=== PATIENT | female | born 1995 | race African-American/Black ===

== ENCOUNTER 2016-05-11 08:10 | Emergency (ER) | payer OTHER ==
[2016-05-11] MEDS: 0.9 % SODIUM CHLORIDE 1,000 ML IV ONE ×2 (09:00→10:17)
[2016-05-11] MEDS: ONDANSETRON HCL/PF 4 MG/ 2ML VIAL IVP ONE (09:02)
[2016-05-11 09:31] LABS: BASOPHILS % 0.2 (0.0-1.5); EOSINOPHILS % 1.3 % (0.0-6.8); LYMPHOCYTES # 0.6 # k/uL (0.6-4.0); MEAN CORPUSCULAR HEMOGLOBIN 30.5 pg (28.0-34.0); MONOCYTES # 0.2 # k/uL (0.0-0.9); MONOCYTES % 2.9 % (0.0-11.0); NEUTROPHILS # 6.6 # k/uL (1.4-7.7)
[2016-05-11 11:00] VITALS: BP 104/58
[2016-05-11 11:47] LABS: APPEARANCE,URINE CLEAR (CLEAR); COLOR,URINE YELLOW (YELLOW); OCCULT BLOOD,URINE 1+ (NEGATIVE); PH URINE 8.5 (5.0 - 8.0)
--- NOTE | 2016-05-11 15:12 | ED Physician Documentation ---
General Adult - HISTORIAN Historian: patient - HPI Stated Complaint: N/V with Chief Complaint: General Adult Onset: hours Timing: worse Further Comments: yes (21 year old female patient presents with c/o nausea and vomiting last night. Concerned she may have food poisoning. Has not been able to keep down po's since dinner last night, c/o epigastric discomfort. Reports diarrhea x 1 episode, denies fever, cough or SOB. Report good movement.) - ROS CONST: no problems EYES/ENT: none CVS/RESP: none GI/: vomiting, nausea, diarrhea MS/SKIN/LYMPH: none NEURO/PSYCH: denies: headache, fainting, dizziness, anxiety - PAST HX Past History: none Other History: none Allergies/Adverse Reactions: Allergies Allergy/AdvReac Type Severity Reaction Status Date / Time No Known Allergies Allergy Verified 05/01/16 16:13 Home Medications: Ambulatory Orders Medication Instructions Recorded Pnv95/Ferrous Fumarate/FA 1 tab PO DAILY 05/01/16 [ Caplet] Ondansetron HCl Rapdis [Zofran Odt] 4 mg PO Q6 PRN #15 tab 05/11/16 - SOCIAL HX Smoking History: non-smoker - FAMILY HX Family History: No - VITAL SIGNS Vital Signs: Vital Signs Temp Pulse Resp BP Pulse Ox 98 F 82 14 104/58 99 05/11/16 08:10 05/11/16 10:51 05/11/16 10:51 05/11/16 10:51 05/11/16 10:51 - REVIEWED ASSESSMENTS Nursing Assessment Reviewed: Yes Vitals Reviewed: Yes Progress - Progress Progress: G2, P1 21 weeks . patient states nausea has improved after zofran and fluids. Up to bathroom, voided. Reviewed discharge instructions, questions answered. ED Results Lab/Radiology - Lab Results Lab Results: Lab Results 05/11/16 05/11/16 09:20 09:15 WBC 7.60 K/ul K/ul (4.00-12.00) RBC 4.33 M/ul M/ul (3.90-5.20) Hgb 13.2 g/dL g/dL (12.0-16.0) Hct 38.5 % % (34.5-46.5) MCV 89.0 fl fl (80.0-100.0) MCH 30.5 pg pg (28.0-34.0) MCHC 34.3 g/dL g/dL (30.0-36.0) RDW 13.1 % % (11.3-14.3) Plt Count 167 K/mm3 K/mm3 (130-400) Neut % (Auto) 86.8 % H % (39.0-79.0) Lymph % (Auto) 7.9 % L % (16.0-50.0) [place] % (Auto) 2.9 % % (0.0-11.0) Eos % (Auto) 1.3 % % (0.0-6.8) Baso % (Auto) 0.2 (0.0-1.5) Neut # 6.6 # k/uL # k/uL (1.4-7.7) Lymph # 0.6 # k/uL # k/uL (0.6-4.0) [place] # 0.2 # k/uL # k/uL (0.0-0.9) Eos # 0.1 # k/uL # k/uL (0.0-0.6) Baso # 0.0 # k/uL # k/uL (0.0-0.5) Reactive Lymphs % 0.9 % % (0.0-5.0) Reactive Lymphs # 0.1 # k/uL # k/uL (0.0-0.8) Urine Color Yellow (YELLOW) Urine Appearance Clear (CLEAR) Urine pH 8.5 (5.0 - 8.0) Ur Specific [place] 1.020 (1.010-1.030) Urine Protein 1+ mg/dL H mg/dL (NEGATIVE) Urine Ketones 4+ mg/dL H mg/dL (NEGATIVE) Urine Occult Blood 1+ H (NEGATIVE) Urine Nitrite Negative (NEGATIVE) Urine Bilirubin 1+ H (NEGATIVE) Urine Urobilinogen 1.0 Eu Eu (0.2-1.0) Ur Leukocyte Esterase Negative (NEGATIVE) Urine Glucose Negative mg/dL mg/dL (NEGATIVE) - Orders Orders: ED Orders Category Date Time Status Place Saline Lock/IV NOW Care 05/11/16 08:15 Active CBC/PLATELET/DIFF Stat Lab 05/11/16 09:20 Completed UA MACRO DIP ONLY Routine Lab 05/11/16 09:15 Completed UA W/MICRO IF INDICATED Stat Lab 05/11/16 08:15 Ordered 0.9 % Sodium Chloride [Normal Saline] 1,000 ml Med 05/11/16 08:15 Discontinued IV NOW 0.9 % Sodium Chloride [Normal Saline] 1,000 ml Med 05/11/16 10:07 Discontinued IV NOW Ondansetron HCl/Pf [Zofran 4 mg/2 ml] Med 05/11/16 08:15 Discontinued 4 mg IVP NOW ONE General Adult Physical Exam - PHYSICAL EXAM GENERAL APPEARANCE: mild distress EENT: eye inspection normal, VERONICA CVS: reg rate & rhythm, heart sounds normal, equal pulses, no murmur, no gallop , PMI nml, no JVD, no friction rub, 24 ABDOMEN: soft, no organomegaly, normal bowel sounds, no abdominal bruit, no distension, tenderness (epigastric), other (protuberant, abdomen). 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 Diet: Clear liquids Sprite/7-up Juices apple, white grape Gatorade/Powerade Jello Popsicles When tolerating clear liquids, advance to bland diet - such as crackers , rice, bananas or toast Return to the emergency department or call your doctor, if you are having severe abdominal pain, fever >101.0, or if there is blood in the vomit or diarrhea, or you cannot keep down liquids or solid food Home Medications: Ambulatory Orders Pnv95/Ferrous Fumarate/FA [ Caplet] 1 tab PO DAILY 05/01/16 Ondansetron HCl Rapdis [Zofran Odt] 4 mg PO Q6 PRN #15 tab 03/22/17 Condition: Good Disposition: 01 HOME, SELF-CARE Decision to Admit: NO Decision Time: 10:40
== END 2016-05-11 10:51 | disposition home or self-care (01) ==
LOC: ED 08:10
DX: O21.0 Mild hyperemesis gravidarum (principal)
CPT/HCPCS: 81002; 85025; 96361; 96374; 99283; J2405; J7030; S1016

== ENCOUNTER 2016-07-01 15:50 | Emergency (ER) | payer OTHER ==
[2016-07-01] MEDS ORDERED: ONDANSETRON HCL 4 MG TAB.RAPDIS ONE (16:15)
[2016-07-01] MEDS: ONDANSETRON HCL 4 MG TAB.RAPDIS PO ONE (16:20)
[2016-07-01 16:22] LABS: APPEARANCE,URINE Clear (CLEAR); COLOR,URINE Yellow (YELLOW); OCCULT BLOOD,URINE Trace-intact (NEGATIVE)
[2016-07-01 16:31] LABS: AMORPHOUS SEDIMENT,UR FEW (NEGATIVE); STARCH,URINE PRESENT (NEGATIVE)
[2016-07-01 17:05] VITALS: BP 112/81
--- NOTE | 2016-07-01 17:52 | ED Physician Documentation ---
Abdominal Pain - HISTORIAN Historian: patient - HPI Stated Complaint: N/V Chief Complaint: Abdominal Pain Additonal Information: n/v, low abd. pain today Onset: hours (6) Duration: sudden-onset Timing: still present Context: denies: out of country travel, bad food, recent trauma Severity: moderate Quality: aching Front/Back of Body, Lg (Color): 1 - pain Associated Symptoms: nausea, vomiting Exacerbated by: nothing Relieved by: nothing Further Comments: no - ROS CONST: no problems GI/: none CVS/RESP: none EYES/ENT: none MS/SKIN/LYMPH: none NEURO/PSYCH: none - SOCIAL HX Smoking History: non-smoker Alcohol Use: none Drug Use: none - FAMILY HX Family History: no significant history - PAST HX Past History: other (27 weeek iup) Ischemic Bowel Risk Factors: none Other History: none Surgeries/Procedures: none Immunizations: referred to PCP Home Medications: Ambulatory Orders Medication Instructions Recorded Pnv95/Ferrous Fumarate/FA 1 tab PO DAILY 05/01/16 [ Caplet] Ondansetron HCl Rapdis [Zofran Odt] 4 mg PO Q6 PRN #15 tab 05/11/16 Allergies/Adverse Reactions: Allergies Allergy/AdvReac Type Severity Reaction Status Date / Time No Known Allergies Allergy Verified 07/01/16 16:21 - VITAL SIGNS Vital Signs: Vital Signs Temp Pulse Resp BP Pulse Ox 98.9 F 91 H 18 112/81 99 07/01/16 16:55 07/01/16 16:55 07/01/16 16:55 07/01/16 16:55 07/01/16 15:50 - REVIEWED ASSESSMENTS Nursing Assessment Reviewed: Yes Vitals Reviewed: Yes Progress - Results/Orders Results/Orders: ua ordered - Progress Progress: pt. given zofran odt 4 mg p.o. and keflex 500 mg 2 p.o. in er with improvement of symptoms Critical Care Note - Critical Care Note Total Time (mins): 0 ED Results Lab/Radiology - Lab Results Lab Results: Lab Results 07/01/16 16:20 Urine Color Yellow (YELLOW) Urine Appearance Clear (CLEAR) Urine pH 6.0 (5.0 - 8.0) Ur Specific [place] >=1.030 H (1.010-1.030) Urine Protein 2+ mg/dL H mg/dL (NEGATIVE) Urine Ketones Trace mg/dL mg/dL (NEGATIVE) Urine Occult Blood Trace-intact (NEGATIVE) Urine Nitrite Negative (NEGATIVE) Urine Bilirubin Negative (NEGATIVE) Urine Urobilinogen 1.0 Eu Eu (0.2-1.0) Ur Leukocyte Esterase Trace (NEGATIVE) Urine RBC 0-2 (0-2 HPF) Urine WBC 2-5 (0-5 HPF) Ur Squamous Epith Cells Few (NEG-FEW) Amorphous Sediment Few H (NEGATIVE) Urine Bacteria Few H (NEGATIVE) Urine Starch Present H (NEGATIVE) Urine Glucose Negative mg/dL mg/dL (NEGATIVE) - Radiology Radiology Impressions: none ordered - Orders Orders: ED Orders Category Date Time Status URINALYSIS Routine Lab 07/01/16 16:20 Completed Ondansetron HCl Rapdis [Zofran Odt] Med 07/01/16 16:15 Discontinued 4 mg .ROUTE .STK-MED ONE Ondansetron HCl Rapdis [Zofran Odt] Med 07/01/16 16:15 Discontinued 4 mg PO NOW ONE Abdominal Pain Physical Exam - Physical Exam General Appearance: no acute distress, alert EENT: eye inspection normal, ENT inspection normal, pharynx normal, no signs of dehydration, VERONICA, no nystagmus, TM's nml NECK: normal inspection, thyroid normal, supple RESPIRATORY: no resp distress, chest non-tender CVS: reg rate & rhythm, heart sounds normal, equal pulses, no murmur, no gallop , PMI nml, no JVD ABDOMEN: soft, no organomegaly, normal bowel sounds, no abdominal bruit, no distension, tenderness (suprapubic area) BACK: normal inspection, no CVA tenderness SKIN: warm/dry, normal color EXTREMITIES: non-tender, normal range of motion, no evidence of injury, no edema NEURO: oriented X3, CN's nml as tested, motor nml, sensation nml, mood/affect nml, cognition normal Vital Signs: Vital Signs Temp Pulse Resp BP Pulse Ox 98.9 F 91 H 18 112/81 99 07/01/16 16:55 07/01/16 16:55 07/01/16 16:55 07/01/16 16:55 07/01/16 15:50 Discharge Clincal Impression: Urinary tract infection Qualifiers: Urinary tract infection type: acute cystitis Hematuria presence: without hematuria Qualified Code(s): N30.00 - Acute cystitis without hematuria Referrals: Savannah Tong [Primary Care Provider] - 2 Days Home Medications: Ambulatory Orders Pnv95/Ferrous Fumarate/FA [ Caplet] 1 tab PO DAILY 05/01/16 Ondansetron HCl Rapdis [Zofran Odt] 4 mg PO Q6 PRN #15 tab 05/11/16 Comments: pt. discharged with scripts for keflex and zofran Condition: Stable Disposition: 01 HOME, SELF-CARE Decision to Admit: NO Decision Time: 16:50
== END 2016-07-01 16:50 | disposition home or self-care (01) ==
LOC: ED 15:50
DX: N30.00 Acute cystitis without hematuria (principal)
CPT/HCPCS: 81002; A9270; 99283

== ENCOUNTER 2016-08-06 09:17 | Emergency (ER) | payer OTHER ==
[2016-08-06 09:40] LABS: APPEARANCE,URINE CLOUDY (CLEAR); COLOR,URINE YELLOW (YELLOW); OCCULT BLOOD,URINE NEGATIVE (NEGATIVE); UROBILINOGEN URINE 0.2 Eu (0.2-1.0)
--- NOTE | 2016-08-06 10:13 | ED Physician Documentation ---
Female Urogenital Problems - HISTORIAN Historian: patient - HPI Stated Complaint: Urinary Symptoms Chief Complaint: Abdominal Pain Onset: hours (last noc) Severity: mild Further Comments: yes (Patient started to have some abd cramping pain inthe lwoer abd area. ? Contractions. Patient is 34 weeks in . [id number].Cramps are not regular. Has been having some clear vaginal discharge. Last seen byOB last week and everything was ok.) - Associated Symptoms Urinary Symptoms: urgency w/ urination. denies: blood in urine, frequent urination, discomfort w/ urination, burning w/ urination Discharge: vaginal discharge (clear white). denies: vaginal fluid leakage, odorous discharge - ROS CONST: none GI/: denies: nausea, vomiting - PAST HX Past History: none Other History: none Surgeries/Procedures: none Immunizations: referred to PCP Allergies/Adverse Reactions: Allergies Allergy/AdvReac Type Severity Reaction Status Date / Time No Known Allergies Allergy Verified 08/06/16 09:39 Home Medications: Ambulatory Orders Medication Instructions Recorded Pnv95/Ferrous Fumarate/FA 1 tab PO DAILY 05/01/16 [ Caplet] - SOCIAL HX Smoking History: less than 1 pack/day Alcohol Use: none Drug Use: none - FAMILY HX Family History: none - VITAL SIGNS Vital Signs: Vital Signs Temp Pulse Resp BP Pulse Ox 97.8 F 98 H 18 129/63 99 08/06/16 09:20 08/06/16 09:20 08/06/16 09:20 08/06/16 09:20 08/06/16 09:20 - REVIEWED ASSESSMENTS Nursing Assessment Reviewed: Yes Vitals Reviewed: Yes ED Results Lab/Radiology - Lab Results Lab Results: Lab Results 08/06/16 09:25 Urine Color Yellow (YELLOW) Urine Appearance Cloudy H (CLEAR) Urine pH 7.0 (5.0 - 8.0) Ur Specific [place] 1.020 (1.010-1.030) Urine Protein Negative mg/dL mg/dL (NEGATIVE) Urine Ketones Negative mg/dL mg/dL (NEGATIVE) Urine Occult Blood Negative (NEGATIVE) Urine Nitrite Negative (NEGATIVE) Urine Bilirubin Negative (NEGATIVE) Urine Urobilinogen 0.2 Eu Eu (0.2-1.0) Ur Leukocyte Esterase 1+ H (NEGATIVE) Urine Glucose Negative mg/dL mg/dL (NEGATIVE) - Orders Orders: ED Orders Category Date Time Status UA MACRO DIP ONLY Routine Lab 08/06/16 09:25 Completed URINE CULTURE Routine Lab 08/06/16 09:25 Received Female Urogenital Problems - EXAM General Appearance: no acute distress Neck: nml inspection Respiratory: no resp. distress, breath sounds nml, respiratory distress. No: wheezes, rales, rhonchi CVS: reg rate & rhythm, heart sounds normal, equal pulses Abdomen: soft, non-tender, no organomegaly, no distention, nml bowel sounds, gravid uterus (nont). No: tenderness Pelvic: No: vaginal discharge, active bleeding, cervical dilation, adnexal tenderness (R), adnexal tenderness (L) Back: non-tender. No: vertebral point-tendernes Skin: color nml, no rash Extremities: non-tender, no edema Neuro: mood/affect nml Discharge Clincal Impression: Abdominal cramping Referrals: Savannah Tong [Primary Care Provider] - 2 Days Additional Instructions: Drink a lot of fluids. If you continue to have problems to contact your OB doctor to see if they want to see you. Home Medications: Ambulatory Orders Pnv95/Ferrous Fumarate/FA [ Caplet] 1 tab PO DAILY 05/01/16 Condition: Stable Disposition: 01 HOME, SELF-CARE Decision to Admit: NO Date of Decison to Admit: 08/06/16 Decision Time: 10:12
[2016-08-06 10:23] VITALS: BP 118/78
== END 2016-08-06 10:20 | disposition home or self-care (01) ==
LOC: ED 09:17
DX: R10.9 Unspecified abdominal pain (principal)
CPT/HCPCS: 81002; 87086; 99283

== ENCOUNTER 2016-09-11 22:11 | Emergency (ER) | payer OTHER ==
--- NOTE | 2016-09-11 22:16 | ED Physician Documentation ---
General Adult - HISTORIAN Historian: patient - HPI Stated Complaint: @ 38 wks, ? contractions Chief Complaint: General Adult Onset: hours Severity: moderate Further Comments: yes (Pt is a 21 yo female at 38 and 1/7 weeks who says that she has been having contractions for a couple of days. Pt has had some clear fluid vaginally this am, she says. No blood, good movement. Pt reports no problems in previous .) - ROS CONST: no problems EYES/ENT: none CVS/RESP: none GI/: other (possible contractions in ) MS/SKIN/LYMPH: none - PAST HX Past History: none Allergies/Adverse Reactions: Allergies Allergy/AdvReac Type Severity Reaction Status Date / Time No Known Allergies Allergy Verified 09/11/16 23:03 Home Medications: Ambulatory Orders Medication Instructions Recorded Pnv95/Ferrous Fumarate/FA 1 tab PO DAILY 05/01/16 [ Caplet] Cephalexin [Keflex] 500 mg PO Q12H #10 capsule 09/11/16 - SOCIAL HX Smoking History: quit less than 1 year - FAMILY HX Family History: No - VITAL SIGNS Vital Signs: Vital Signs Temp Pulse Resp BP Pulse Ox 118/78 08/06/16 10:20 - REVIEWED ASSESSMENTS Nursing Assessment Reviewed: Yes Vitals Reviewed: Yes Progress - Progress Progress: 1 L NS IVF U/a - trace leuk, 1+ blood minimal fluid on pelvic exam. nitrizine - neg. No ferning on slide. contractions mild, timed > q 10 min FHT's - 140 Rx Keflex 500 mg po bid x 5 days, 1st dose in ER. Pt has f/u appointment with OB, Dr. Tong tomorrow 09/12/16. General Adult Physical Exam - PHYSICAL EXAM GENERAL APPEARANCE: mild distress EENT: pharynx normal NECK: normal inspection, supple RESPIRATORY: no resp distress, chest non-tender, breath sounds normal CVS: reg rate & rhythm, heart sounds normal ABDOMEN: normal bowel sounds, other (gravid; pelvic exam: cervix closed, not effaced. Nitrizine-neg; no ferning on slide.) BACK: normal inspection, no CVA tenderness SKIN: warm/dry, normal color EXTREMITIES: non-tender, normal range of motion NEURO: oriented X3, motor nml, sensation nml Discharge Clincal Impression: with concern for active labor, uti Prescriptions: Cephalexin [Keflex] 500 mg PO Q12H #10 capsule Referrals: Savannah Tong [Primary Care Provider] - 09/12/16 Home Medications: Ambulatory Orders Pnv95/Ferrous Fumarate/FA [ Caplet] 1 tab PO DAILY 05/01/16 Cephalexin [Keflex] 500 mg PO Q12H #10 capsule 09/11/16 Condition: Good Disposition: 01 HOME, SELF-CARE Decision to Admit: NO Decision Time: 00:20
[2016-09-11] MEDS: 0.9 % SODIUM CHLORIDE 1,000 ML IV ONE (22:30)
[2016-09-11 22:44] LABS: APPEARANCE,URINE CLEAR (CLEAR); COLOR,URINE AMBER (YELLOW); OCCULT BLOOD,URINE 1+ (NEGATIVE)
[2016-09-11] MEDS ORDERED: CEPHALEXIN 250 MG CAPSULE PO ONE (23:54)
[2016-09-12] MEDS: 0.9 % SODIUM CHLORIDE 1,000 ML IV ONE (00:08)
[2016-09-12 00:29] VITALS: BP 112/57
== END 2016-09-12 00:15 | disposition home or self-care (01) ==
LOC: ED 22:11
DX: O23.43 Unspecified infection of urinary tract in pregnancy, third trimester (principal)
CPT/HCPCS: 81002; J7030; 96360; 99283; S1016

== ENCOUNTER 2017-04-06 04:34 | Emergency (ER) | payer OTHER ==
--- NOTE | 2017-04-06 04:53 | ED Physician Documentation ---
General Adult - HISTORIAN Historian: patient - HPI Stated Complaint: possible miscarriage Chief Complaint: General Adult Onset: hours (4) Timing: still present Severity: moderate Further Comments: yes (She states her last period was approx 12.13.17 and she did take a test two weeks ago which she reports as positive. She has has some mild nausea. No OBGYN appt as of yet, no vitamins. She states for the entire two weeks she has had some low back pain but notes she has had that in other pregnancies. She states last night approx dinner time she started to have cramps and some "clots that fell out in the toliet when I went to the bathroom" She reports that she has had increasing low back pain and now abdominal cramps then states she woke about one hour ago with "heavy bleeding all over the bed" she states she has some cramps now.) Last known Well Code/Unknown Code: Unknown - ROS CONST: no problems EYES/ENT: none GI/: abdominal pain. denies: problems urinating, vomiting, nausea MS/SKIN/LYMPH: none NEURO/PSYCH: denies: headache, fainting, dizziness - PAST HX Past History: none Other History: none Surgeries/Procedures: none Immunizations: UTD Allergies/Adverse Reactions: Allergies Allergy/AdvReac Type Severity Reaction Status Date / Time No Known Allergies Allergy Verified 04/06/17 04:54 Home Medications: Ambulatory Orders Medication Instructions Recorded NK [NK] 04/06/17 - SOCIAL HX Smoking History: non-smoker Alcohol Use: none Drug Use: none - FAMILY HX Family History: No - VITAL SIGNS Vital Signs: Vital Signs Temp Pulse Resp BP Pulse Ox 112/57 09/12/16 00:15 - REVIEWED ASSESSMENTS Nursing Assessment Reviewed: Yes Vitals Reviewed: Yes Progress - Progress Progress: 0511: Discussion on care. She would like to stay at our facility for a bolus of NS and re check of vaginal bleeding. DG 0643: She states she is wanting to go home. Bleeding is less. She states her cramping continues. DG General Adult Physical Exam - PHYSICAL EXAM GENERAL APPEARANCE: no distress EENT: eye inspection normal NECK: normal inspection RESPIRATORY: no resp distress, chest non-tender, breath sounds normal CVS: reg rate & rhythm, heart sounds normal, equal pulses, no murmur ABDOMEN: soft, no organomegaly, normal bowel sounds, no distension, other ( Vaginal exam : vaginal exam reveals mild amount of bright red blood . ) SKIN: warm/dry, normal color EXTREMITIES: non-tender, normal range of motion, no evidence of injury, no edema NEURO: oriented X3, CN's nml as tested, motor nml, sensation nml, mood/affect nml, cognition normal Discharge Clincal Impression: Miscarriage, threatened, early Referrals: Savannah Tong [REFERRING] - 2 Days Comments: 1. Follow up with PCP in 1-2 days 2. Ibuprofen as needed for cramps 3. Increase fluids 4. Return to ER for increased bleeding (soaking a pad in 1 hour or less, fever over 100.4, foul smelling vaginal discharge, dizziness) Condition: Stable Disposition: 01 HOME, SELF-CARE Decision to Admit: NO Date of Decison to Admit: 04/06/17 Decision Time: 06:43
[2017-04-06] MEDS ORDERED: 0.9 % SODIUM CHLORIDE 1,000 ML IV ONE (05:08)
[2017-04-06] MEDS ORDERED: IBUPROFEN 400 MG TABLET PO ONE (05:32)
[2017-04-06 05:37] LABS: EOSINOPHILS % 3.2 % (0.0-6.8); MEAN CORPUSCULAR HEMOGLOBIN 28.3 pg (28.0-34.0); MEAN CORPUSCULAR VOLUME 86.5 fl (80.0-100.0); MONOCYTES % 4.2 % (0.0-11.0); NEUTROPHILS # 3.1 # k/uL (1.4-7.7)
[2017-04-06 05:49] LABS: eGFR (African) > 60; eGFR (Non-African) > 60
[2017-04-06 07:01] VITALS: BP 98/58
== END 2017-04-06 06:55 | disposition home or self-care (01) ==
LOC: ED 04:34
DX: O20.0 Threatened abortion (principal); Z3A.00 Weeks of gestation of pregnancy not specified
CPT/HCPCS: 80053; 84702; 84703; 85025; J7030; 96365; 99283; S1016